=== PATIENT | male | born 1995 | race Two or more races ===

== ENCOUNTER 2020-07-16 13:13 | Emergency (ER) | payer OTHER ==
[~2020-07-16] VITALS: Ht 172.7 cm; Wt 72.7 kg
[2020-07-16 15:28] LABS: COVID AG,FIA SOURCE NASOPHARYNGEAL
[2020-07-16 16:12] LABS: BASOPHILS % (AUTO) 0.8 % (0.0-2.0); EOSINOPHILS % (AUTO) 2.2 % (1.0-6.0); HEMATOCRIT 41.6 % (41-53); HEMOGLOBIN 13.8 g/dL (13.5-17.5); LYMPHOCYTES # (AUTO) 1.7 K/uL (1.0-4.8); LYMPHOCYTES % (AUTO) 41.4 % (22.0-44.0); MEAN CORPUSCULAR HEMOGLOBIN 30.4 pg (26.0-34.0); MEAN CORPUSCULAR HGB CONC 33.2 G/dL (31.0-37.0); MEAN CORPUSCULAR VOLUME 92 fL (80-100); MONOCYTES # (AUTO) 0.5 K/uL (0.1-1.0); MONOCYTES % (AUTO) 11.4 % (2.0-9.0); NEUTROPHILS # (AUTO) 1.9 K/uL (1.8-7.7); NEUTROPHILS % (AUTO) 44.2 % (40.0-70.0); PLATELET COUNT (AUTO) 265 K/uL (150-450); RED BLOOD CELL COUNT(AUTO) 4.53 MIL/uL (4.50-5.90); RED CELL DISTRIBUTION WIDTH 12.1 % (11.5-14.5)
[2020-07-16] MEDS ORDERED: 0.9% SODIUM CHLORIDE 10 ML SYRINGE IVP PRN (17:00)
[2020-07-16] MEDS ORDERED: ACETAMINOPHEN 325 MG TABLET PO PRN ×2 (17:00→17:30)
[2020-07-16] MEDS ORDERED: ONDANSETRON HCL 4 MG/2 ML VIAL IVP PRN (17:00)
[2020-07-16 17:25] LABS: ANION GAP 11 mmol/L (8-16); CARBON DIOXIDE 26 mmol/L (22-29); CHLORIDE 104 mmol/L (98-107); GLOMERULAR FILTR. RATE CALC > 60 mL/min (>60); GLUCOSE,RANDOM 102 mg/dL (70-110); POTASSIUM 4.3 mmol/L (3.5-5.1); SODIUM SERUM 141 mmol/L (136-145); UREA NITROGEN, BLOOD 8 mg/dL (7-18)
[2020-07-16] MEDS ORDERED: MAGNESIUM HYDROXIDE SUSPENSION 30 ML UDCUP PO PRN (17:30)
[2020-07-16 17:32] LABS: ALANINE AMINOTRANSFERASE 39 U/L (12-78); ALBUMIN 3.9 g/dL (3.4-5.0); ALKALINE PHOSPHATASE 132 U/L (46-116); ASPARTATE AMINOTRANSFERASE 30 U/L (15-37); BILIRUBIN,TOTAL 0.4 mg/dL (0.1-1.0); TOTAL PROTEIN, SERUM 7.7 g/dL (6.4-8.2)
[2020-07-17] MEDS ORDERED: INFLUENZA VIRUS VACCINE QVS 2020-21 (6MO+)/PF 60 MCG/0.5 ML SYRINGE IM ONE (07:00)
[2020-07-17] MEDS: FAMOTIDINE 20 MG TABLET PO SCH (08:23)
[2020-07-17 09:34] VITALS: BP 118/72
[2020-07-17 20:04] VITALS: BP 124/72
[2020-07-18 04:37] VITALS: BP 117/75
[2020-07-18] MEDS: FAMOTIDINE 20 MG TABLET PO SCH (08:15)
[2020-07-18 10:26] VITALS: BP 119/70
[2020-07-18 19:42] VITALS: BP 128/82
[2020-07-18] MEDS ORDERED: LORazepam 0.5 MG TABLET PO PRN (20:00)
[2020-07-19 00:26] VITALS: BP 111/67
[2020-07-19 05:23] VITALS: BP 110/64
[2020-07-19 08:24] VITALS: BP 102/62
[2020-07-19] MEDS: FAMOTIDINE 20 MG TABLET PO SCH (08:41)
== END 2020-07-16 21:00 | disposition other institution (70) ==
LOC: EMS 13:16 → 6S 16:54 → UNDOADMIN 16:54 → 6S 21:00 → UNDODISIN 07-19 12:12
DX: Z20.828 Contact with and (suspected) exposure to other viral communicable diseases (principal)
CPT/HCPCS: 36415; 80053; 85025; 87426; 99285; U0003